=== PATIENT | female | born 1985 | race Two or more races ===

== ENCOUNTER 2021-01-08 18:12 | Emergency (ER) | payer OTHER ==
[~2021-01-08] VITALS: Ht 154.9 cm; Wt 95.3 kg
[2021-01-08] MEDS ORDERED: CLONAZEPAM1 MG (19:02)
[2021-01-08] MEDS ORDERED: ABILIFY20 MG (19:02)
[2021-01-08] MEDS ORDERED: DALMANE30 MG (19:02)
[2021-01-08] MEDS ORDERED: DEPAKOTE ER500 MG (19:02)
== END 2021-01-09 | disposition home or self-care (01) ==
LOC: ER 18:12
DX: S50.862A Insect bite (nonvenomous) of left forearm, initial encounter (principal); S50.812A Abrasion of left forearm, initial encounter; W57.XXXA Bitten or stung by nonvenomous insect and other nonvenomous arthropods, initial encounter; Y93.89 Activity, other specified; Y92.89 Other specified places as the place of occurrence of the external cause; Y99.8 Other external cause status; M79.632 Pain in left forearm

== ENCOUNTER 2021-01-13 12:39 | Emergency (ER) | payer OTHER ==
[~2021-01-13] VITALS: Ht 154.9 cm; Wt 99.8 kg
[~2021-01-13 12:39] MED LIST: ABILIFY20 MG; CLONAZEPAM1 MG; DALMANE30 MG; DEPAKOTE ER500 MG
== END 2021-01-13 16:20 | disposition home or self-care (01) ==
LOC: ER 12:39
DX: A04.9 Bacterial intestinal infection, unspecified (principal)

== ENCOUNTER → 2023-05-15 | Emergency (ER) | payer OTHER ==
[~2023-05-15] VITALS: Ht 154.9 cm; Wt 99.8 kg
[2023-05-15 04:33] LABS: HEMATOCRIT 36.6 % (36.0-45.00); HEMOGLOBIN 12.3 g/dL (12.0-15.00); MEAN CELL VOLUME 83.1 fL (80.00-100.00); MEAN CORPUSCULAR HGB CONC 33.7 g/dl (32.0-36.0); PLATELET COUNT 284 K/uL (150-450); RED BLOOD COUNT 4.41 M/uL (4.00-6.00); RED CELL DISTRIBUTION WIDTH 15.4 % (11.5-14.5)
== END | disposition home or self-care (01) ==
LOC: ER 00:03
DX: N94.6 Dysmenorrhea, unspecified (principal); R53.81 Other malaise; Z91.013 Allergy to seafood